=== PATIENT | male | born 1980 | race Caucasian/White ===

== ENCOUNTER 2017-02-26 02:50 | Emergency (ER) | payer OTHER ==
[2017-02-26] MEDS ORDERED: LET GEL TOPICAL 1 EA SYR TP ONE ×2 (03:07→03:12)
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
[2017-02-26] MEDS ORDERED: ceFAZolin 2 GM/DEXTROSE 100 ML IV ONE (03:22)
[2017-02-26] MEDS ORDERED: NS 1,000 ML IV ONE (03:28)
[2017-02-26] MEDS ORDERED: ONDANSETRON 4 MG/2 ML VIAL IVP ONE (03:28)
[2017-02-26 03:50] LABS: ETHANOL SERUM 203 mg/dL (0-10)
[2017-02-26] MEDS ORDERED: IOPAMIDOL (ISOVUE 370) 100 ML BTL IV ONE (04:09)
[2017-02-26 04:18] VITALS: O2SAT 97
[2017-02-26 04:26] LABS: % IMMATURE GRANULYOCYTES 0.8 % (0.0-1.1); ABSOLUTE IMMATURE GRANULOCYTES 0.09 10^3/uL (0.00-0.10); ADD DIFF? NO; ADD MORPH? NO; ADD SCAN? NO; ANION GAP 16 mEq/L (8-16); ATYPICAL LYMPHOCYTE FLAG 0 (0-99); CALCIUM 9.3 mg/dL (8.5-10.4); CARBON DIOXIDE 20 mEq/l (22-31); CHLORIDE 102 mEq/L (97-110); FRAGMENT RBC FLAG 0 (0-99); GLOMERULAR FILTRATION RATE > 60; GLUCOSE 125 mg/dL (70-100); HEMATOCRIT 41.9 % (40.0-51.0); HEMOGLOBIN 14.6 g/dL (13.7-17.5); LEFT SHIFT FLG 0 (0-99); LIPEMIA HEMOLYSIS FLAG 90 (0-99); MEAN CELL HEMOGLOBIN CONCENTR. 34.8 g/dL (32.4-36.7); MEAN PLATELET VOLUME 10.7 fL (8.7-11.7); PLATELET CLUMPS FLAG 0 (0-99); PLATELET COUNT 212 10^3/uL (150-400); POTASSIUM 4.1 mEq/L (3.5-5.2); RED BLOOD CELL COUNT 4.87 10^6/uL (4.40-6.38); RED CELL DISTRIBUTION WIDTH 12.3 % (11.5-15.2); SODIUM 138 mEq/L (134-144)
[2017-02-26 05:56] VITALS: BP 150/100; PULSE 89; RESP 18; TEMP 97.7
== END 2017-02-26 06:02 | disposition home or self-care (01) ==
DX: S02.2XXA Fracture of nasal bones, initial encounter for closed fracture (principal); S01.511A Laceration without foreign body of lip, initial encounter; S01.21XA Laceration without foreign body of nose, initial encounter; S01.111A Laceration without foreign body of right eyelid and periocular area, initial encounter; F10.920 Alcohol use, unspecified with intoxication, uncomplicated; S01.81XA Laceration without foreign body of other part of head, initial encounter; V18.2XXA Unspecified pedal cyclist injured in noncollision transport accident in nontraffic accident, initial encounter
CPT/HCPCS: 96365; G0480; J0690; Q9967

== ENCOUNTER 2018-08-17 07:18 | Day surgery (SDC) | payer OTHER ==
--- NOTE | 2018-08-16 21:22 | PDGENHP ---
History and Physical - Chief Complaint LEFT HIP PAIN - History of Present Illness Diagnosis: 1. Bilateral~Femoroacetabular impingement (RATNA) Cam type,~with~resultant labral tear; LEFT SIDE SYMPTOMATIC 2. Hx of Left knee surgeries and persistent Left knee pain 3. ~~Clinical suspicion of retrotorsion of femur HISTORY OF PRESENT ILLNESS: Lizais a 38 y.o.~very~~active male~who I have had the pleasure to consult on today. 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 ~Lizaenjoys mountain biking, road biking, skiing, hiking, climbing and running.~~He has stopped running due to a combination of hip and knee pain. El's~left~hip pain started October 2016 (in 2002 he was doing a plank with one leg raised a year later was diagnosed with Left hip labral tear, he got a cortisone injection in 2003 which gave him both immediate and usp pain),~~Lizadoes not have~a known history of hip dysplasia. Presentation today is of~posterior, anterolateral~left~hip pain. ~The hip~does not~wake him~at night and does~click and catch on him. Sitting~does not present a problem~for him.~Lizadoes~report suffering from lower back pain episodes. Lizahas~participated in physical therapy (November 2016-present)~and has~ tried other conservative measures including hip injections~(cortisone injection see above and PRP in JANUARY 2017 at [facility] with 10% improvement)~, dry needling, chiropractic treatments and massage therapy.~He~has not~received sufficient symptomatic improvement. Lizahas not~utilized medication for pain management. Lizadenies issues with the right~hip. ~ Lizaunderstands that he~has a hip and pelvis problem which should be researched and wishes to get a better understanding of his~hip status, followed by an establishment of a treatment strategy, hoping he~would be able to get back to his~well being active life. History: Past medical history:~~ None which is relevant~ Relevant familial history:~Mother with Rheumatoid Arthritis and with lung complications ~~~~~~~~~~~~~~~~~~~~~~~~~~~~~~~~~~~~Maternal grandmother with RA Past surgical history:~ No. Surgery Anesthesia 1 Left knee scope x4 General~ Lizadenies problematic issues with general anesthesia in the past. I have reviewed, verified and agree with the past medical, surgical, family and social history. Current Medications:~has a current medication list which includes the following prescription(s): sertraline hcl. ALLERGIES:~has No Known Allergies. Objective: Physical Examination: Lizais 5~feet 9~inches tall and weighs 145~Lbs. Lizais AAO x3; christopher~is well-nourished, in NAD. Skin is warm and dry. ~Breathing is non-labored. ~CV with RRR by pulse. Abdomen is soft, NTND. Currently,~christopher~walks with a normal gait with short stride~gait. Trendelenburg sign is~negative~and proprioception is normal,~both~side. Christopher~presents with mild~signs of joint laxity. Beightons Score:~2 He~is fit looking. ~~ Lower spine examination is~negative~for sciatic or femoral nerve irritation with negative~SLR &~femoral stretch tests. Range of motion of the spine is normal~for flexion, extension, and rotations, with no~associated pain. Strength, Sensation and pulses are~normal -~bilaterally Ankles and knees exams are~normal~and no~mal-alignment is evident. Christopher~has left~<.05~cm short leg length discrepancy. Thigh circumference is~asymmetric~with low~muscle atrophy~on left~side. Hip ROM (degrees): FL ER At 90~hip FL IR At 90~hip FL AB AD EX IR Neutral hip ER Neutral hip R 105 60 5 35 10 10 35 50 L 100 with pain 55 5 40 5 10 30 50 Specific hip and pelvis tests: Quadrant RODNEY Roll Add. Longus R + Negative Negative Negative L +++ +++ Negative Negative Glut. Med ITB Pos. Imp R Negative 5/5 strength Negative 5/5 strength Negative L Negative 5/5 strength Negative 5/5 strength Negative Squeeze test measured~normal Bony Symphysis pubis is~pain free~to touch while concentric activity of the rectus abdominis, does not~produce pain at its insertion. Ilio Psos specific tests are~negative for pain during cycling for~both hips~and remarkable for non painful snap~LEFT SIDE HF has~strong without pain~both hips. Anterior~capsule tenderness LEFT Greater trochanteric burse is~pain free~on both hips. Piriformis tests: FAIR is~negative,~with no~local signs of neuritis related to sciatic nerve. SIJs examination is~normal~with normal~RODNEY in relation and local tenderness. Hamstrings tests are~negative~functional contraction and negative~tendinopathy both hips. On a daily basis, the following percentages reflectSue's overall total pain: Deep hip:~100% LEFT KNEE PAIN: is a significant source of pain as well. Imaging: Radiology studies which I have personally reviewed, analyzed and measured are below: XR: AP of the hip and pelvis: Performed in a~good~technique Coccyx to pubic symphysis distance~0.5~cm. 7~degrees cephal [place] Lines are~preserved. Minimal~Pathological signs are seen in the Symphysis Pubis. Minimal~Pathological signs are seen at the Ischial tuberosity. ~ Specific measurements show: NSA~ LCE Sourcil~Angle Sharp's angle Lat. Cam Lat. Pincer C.Over~sign Head~Coverage % ATDmm R N 41 1 37 + - 12:30~OS N N L N 37 1 35 + - - N N Pos. wall sign ISS NAD ~~Dysplasia Comments R Negative Negative 12.7~mm Negative L Negative Negative 13.3~mm Negative Sclerosis Sup. Lat. OA Cysts Joint Space-WBZ Joint Space-Medial R Negative Negative Negative 5.1~mm 4.9~mm L Negative Negative Negative 5~mm 4.4~mm X Table lateral: Anterior cam lesion is~seen~on both hips. Alpha Angle: ~ Right~87~dergrees Left~73~degrees MRI shows:~Labral tear, no bone edema, good cartilage coverage Impression and plan:Alli De Jesusis a 38 y.o.~active male~suffering from symptomatic left~hip pain due to Bilateral~Femoroacetabular impingement (RATNA) Cam type,~with~resultant labral tear~causing significant disability to him~and altering his~sport and life activities. Physical examination, imaging, and~his~story correspond with the diagnosis mentioned above. I explained that femoroacetabular impingement (RATNA) arises due to a bony or soft tissue conflict between the femur (ball) and acetabulum (socket) caused by an abnormality in the shape of the hip joint. Over time, repetitive impingement can result in damage to the labrum and adjacent surface cartilage within the socket, ultimately giving rise to progressive osteoarthritis of the hip. I explained that although a labral tear can be a source of pain, it is rarely the root of the problem and typically occurs secondary to an underlying abnormality in the shape and mechanics of the hip joint. ~ I reviewed conservative treatment options for RATNA including activity modification to avoid positions of impingement, physical therapy, non-steroidal anti-inflammatory medications, and various injections (corticosteroid and PRP) aimed at reducing inflammation in the hip joint or/and preventing dynamic impingement. PRP injections may promote healing and reduce symptoms in certain cases but it will not repair chronically damaged tissue. Although these measures may help to buy time and reduce current level of symptoms, they are not a definitive solution to the problem given the underlying abnormality in the shape of the hip joint. Patients who have failed conservative management and continue to experience symptoms are candidates for hip arthroscopy, a minimally invasive surgery that can definitively address the underlying problem. Hip arthroscopy typically includes treating the labrum with either repair or reconstruction of the torn labrum; as well as addressing the underlying abnormalities by restoring the normal shape to the hip joint. ~If the cartilage is damaged a Microfracture surgical procedure may also be necessary to help stimulate the growth of fibrocartilage. ~If a patient requires a labral reconstruction or a Microfracture, the initial rehabilitation from the surgery may take longer, but the usp results are typically favorable. I reviewed the technical aspects of hip arthroscopy including risks, benefits, and expected course of recovery.~El~understands that hip arthroscopy is a minimally invasive outpatient procedure carried out through small incisions on the outer aspect of the hip joint. During surgery, the labral tear will be identified and either repaired or reconstructed~using bone anchors and suture material. Additionally, any excessive bone will be removed with a high-speed akyli to reshape the hip joint and restore normal anatomy. Risks include infection, bleeding, injury to nearby nerves or vessels, stiffness, persistent pain, instability, venous thromboembolic disease, and traction related complications including temporary foot numbness. Rarely, revision surgery may be required to address these problems. Overall recovery takes approximately 4~ 8~months depending on the extent of damage and degree of repair. In the event that the labral tissue quality is inadequate for successful repair and healing,~Lizaunderstands that a labral reconstruction will be performed. This procedure entails placing a cadaver tissue graft within the hip joint and stabilizing it with bone anchors to build a new labrum. The overall recovery time for labral reconstruction is similar to that of labral repair, although the surgical procedure takes longer to perform. El~will review the info presented. In order to obtain more detailed information regarding the alignment, orientation, and shape of the bony hip and pelvis I will order a CT scan to be performed. The results of the CT scan, including femoral torsion and acetabular version measured values and 3D images, will aid me in deciding on the best treatment strategy and surgical pre-planning. We will also order a left knee MRI to rule out further pathology status post 4 knee arthroscopies and persistent knee pain. El~will contact us if he~wishes to pursue further treatment in the future. Lizais happy with this plan. I have also supplied~him~with handouts, outlining the expected surgical treatment and rehab involved. I wish~ElAlliall the best, ~~ Willie Sprague, PAC History Information - Allergies/Home Medication List Allergies/Adverse Reactions: No Known Allergies Allergy (Unverified 02/26/17 02:53) Home Medications: Sertraline HCl 08/16/18 [Last Taken Unknown] I have personally reviewed and updated: medical history - Social History Smoking Status: Never smoked Review of Systems Review of Systems: Physical Exam Physical Exam:
[2018-08-17] MEDS ORDERED: ACETAMINOPHEN 500 MG TAB PO ONE (07:36)
[2018-08-17] MEDS ORDERED: ceFAZolin 2 GM/DEXTROSE 100 ML IV ONE (07:36)
[2018-08-17] MEDS ORDERED: PREGABALIN 150 MG CAP PO ONE (07:36)
[2018-08-17] MEDS ORDERED: LR 1,000 ML IV ONE (07:39)
[2018-08-17] MEDS ORDERED: MIDAZOLAM 2 MG/2 ML VIAL IVP ONE (08:13)
--- NOTE | 2018-08-17 08:16 | PDANEPAE ---
ANE History of Present Illness Left hip arthroscopic surgery ANE Past Medical History - Cardiovascular History Hx Hypertension: No Hx Arrhythmias: No Hx Chest Pain: No Hx Coronary Artery / Peripheral Vascular Disease: No Hx CHF / Valvular Disease: No Hx Palpitations: No Cardiovascular History Comment: ELEV BP W/MD VISITS OCCAS - Pulmonary History Hx COPD: No Hx Asthma/Reactive Airway Disease: No Hx Recent Upper Respiratory Infection: No Hx Oxygen in Use at Home: No Hx Sleep Apnea: No Sleep Apnea Screening Result - Last Documented: Negative - Neurologic History Hx Cerebrovascular Accident: No Hx Seizures: No Hx Dementia: No - Endocrine History Hx Diabetes: No Hypothyroid: No Hyperthyroid: No Obesity: no - Renal History Hx Renal Disorders: No - Liver History Hx Hepatic Disorders: No - Neurological & Psychiatric Hx Hx Neurological and Psychiatric Disorders: Yes Neurological / Psychiatric History Comment: ANXIETY - Cancer History Hx Cancer: No - Congenital Disorder History Hx Congenital Disorders: No - GI History Hx Gastrointestinal Disorders: No - Other Health History Other Health History: NEG - Chronic Pain History Chronic Pain: Yes (L KNEE, HIP) - Surgical History Prior Surgeries: L KNEE SCOPE x4 ANE Review of Systems Review of systems is: negative Review of Systems: - Exercise capacity METS (RN): 5 METS ANE Patient History - Allergies Allergies/Adverse Reactions: No Known Allergies Allergy (Unverified 02/26/17 02:53) - Home Medications Home Medications: Sertraline HCl 08/16/18 [Last Taken 08/17/18 06:45] - NPO status NPO Status: no food or drink >8 hours NPO Since - Liquids (Date): 08/16/18 NPO Since - Liquids (Time): 20:00 NPO Since - Solids (Date): 08/16/18 NPO Since - Solids (Time): 20:15 - Anes Hx Anes Hx: no prior problems - Smoking Hx Smoking Status: Never smoked Marijuana use: Yes - Alcohol Use Alcohol Use: Occasionally - Family Anes Hx Family Anes Hx: none Family Hx Anesthesia Complications: NEG ANE Labs/Vital Signs - Vital Signs Blood Pressure: 145/107 Heart Rate: 60 Respiratory Rate: 18 O2 Sat (%): 96 Height: 175.26 cm Weight: 67.132 kg ANE Physical Exam - Airway Neck exam: FROM Mallampati Score: Class 1 Mouth exam: normal dental/mouth exam - Pulmonary Pulmonary: no respiratory distress, no rales or rhonchi - Cardiovascular Cardiovascular: regular rate and rhythym, no murmur, rub, or gallop ANE Anesthesia Plan Anesthesia Plan: general endotracheal anesthesia
[2018-08-17] MEDS ORDERED: BUPIVACAINE/EPI 0.25% 30 ML SDV ONE (08:44)
[2018-08-17] MEDS ORDERED: EPINEPHrine 30 MG/30 ML MDV (0.1 MG/0.1 ML) ONE (08:44)
[2018-08-17] MEDS ORDERED: fentaNYL 250 MCG/5 ML INJ ONE ×2 (09:03→11:58)
[2018-08-17] MEDS ORDERED: PROPOFOL/EMULSION 500 MG/50 ML BOTTLE IV ONE ×4 (09:03→13:10)
[2018-08-17] MEDS ORDERED: ROCURONIUM 100 MG/10 ML VIAL ONE ×3 (09:06→13:26)
[2018-08-17] MEDS ORDERED: fentaNYL 100 MCG/2 ML INJ ONE ×4 (10:01→16:28)
[2018-08-17] MEDS ORDERED: HYDROmorphONE/DILAUDID 2 MG/ML INJ ONE (11:07)
[2018-08-17] MEDS ORDERED: PROPOFOL 200 MG/20 ML VIAL ONE (11:59)
[2018-08-17] MEDS ORDERED: DEXAMETHASONE 4 MG/ML VIAL ONE (12:07)
[2018-08-17] MEDS ORDERED: LIDOCAINE 2% 5 ML SDV ONE (12:07)
[2018-08-17] MEDS ORDERED: ONDANSETRON 4 MG/2 ML VIAL ONE ×2 (12:07→14:44)
[2018-08-17] MEDS ORDERED: KETOROLAC 30 MG/1 ML SDV ONE (14:44)
[2018-08-17] MEDS ORDERED: SUGAMMADEX SODIUM 200 MG/2 ML VIAL IVP ONE (14:46)
[2018-08-17] MEDS ORDERED: NALOXONE HCL 0.4 MG/ML INJ ONE (14:58)
[2018-08-17] MEDS ORDERED: oxyCODONE IR 5 MG TAB PO PRN (16:18)
[2018-08-17] MEDS ORDERED: DIAZEPAM 5 MG/ML 1 ML SYR IVP PRN (16:18)
[2018-08-17] MEDS ORDERED: HYDROmorphONE/DILAUDID 2 MG/ML INJ IVP PRN (16:18)
[2018-08-17] MEDS ORDERED: fentaNYL 100 MCG/2 ML INJ IVP PRN (16:18)
[2018-08-17] MEDS ORDERED: NALOXONE HCL 0.4 MG/ML INJ IVP PRN (16:18)
[2018-08-17] MEDS ORDERED: LABETALOL HCL 20 MG/4 ML INJ IVP PRN (16:18)
[2018-08-17] MEDS ORDERED: ONDANSETRON 4 MG/2 ML VIAL IVP PRN (16:18)
[2018-08-17] MEDS ORDERED: HYDROCODONE/APAP 5/325 TAB PO PRN (16:18)
[2018-08-17] MEDS ORDERED: LABETALOL HCL 20 MG/4 ML INJ IVP ONE (16:40)
[2018-08-17] MEDS ORDERED: hydrALAZINE 20 MG/ML VIAL ONE (17:09)
--- NOTE | 2018-08-17 17:09 | POSTOPPROG ---
Post Op Note Date of Operation: 08/17/18 Surgeon: Iron Rizvi Yard Jockey: Dr. Omalley Pre-op Diagnosis: Left RATNA Post-op Diagnosis: Same Procedure: Left Hip Arthroscopy Inf/Abcess present in the surg proc area at time of surgery?: No
[2018-08-17] MEDS ORDERED: hydrALAZINE 20 MG/ML VIAL IVP PRN (17:17)
[2018-08-17] MEDS ORDERED: oxyCODONE IR 5 MG TAB ONE (17:47)
[2018-08-17 18:18] VITALS: BP 134/94
--- NOTE | 2018-08-19 02:13 | POSTANESTH ---
Post Anesthetic Evaluation Cardiovascular Status: Normal, Stable Respiratory Status: Normal, Stable Level of Consciousness/Mental Status: Can Participate in Eval Pain Control: Adequate, Prn Tx Ordered Nausea/Vomiting Control: Adequate, Prn Tx Ordered Complications Possibly Related to Anesthesia: None Noted (Pt doing well pacu. Good pain control. Dc home)
== END 2018-08-17 18:18 | disposition home or self-care (01) ==
LOC: FSGY 07:18
PROVIDERS: ATTEND Orthopaedic Surgery Sports Medicine
DX: M25.852 Other specified joint disorders, left hip (principal); S73.192D Other sprain of left hip, subsequent encounter; M65.9 Synovitis and tenosynovitis, unspecified
CPT/HCPCS: C1713; J0171; J0360; J0690; J1100; J1170; J1885; J2250; J2310; J2405; J2704; J3010